=== PATIENT | female | born 1995 | race Caucasian/White ===

== ENCOUNTER 2022-04-08 13:10 | Emergency (ER) | payer OTHER, SELFPAY ==
[2022-04-08 13:16] VITALS: BP 128/96; PULSE 103; RESP 20; TEMP 36.7; O2SAT 100
[2022-04-08 13:43] LABS: Basophils Absolute Auto 0.1 K/mm3 (0.0-0.1); Basophils Percent Auto 0.3 % (0.2-1.2); Eosinophils Percent Auto 0.1 % (0-4.4); Hematocrit 44.3 % (37.0-47.0); Hemoglobin 15.1 g/dL (12.0-15.0); Immature Granulocyte Absolute 0.09 K/mm3 (0.00-0.031); Immature Granulocyte Percent A 0.5 % (0-0.5); Lymphocytes Absolute Auto 1.33 K/mm3 (0.9-3.2); Lymphocytes Percent Auto 7.7 % (18.3-44.2); Mean Corpuscular HGB Conc 34.1 g/dl (32-36); Mean Corpuscular Hemoglobin 30.8 pg (26-34); Mean Corpuscular Volume 90.2 fl (80-100); Mean Platelet Volume 9.3 fl (7.4-10.4); Monocytes Absolute Auto 0.5 K/mm3 (0.1-0.6); Monocytes Percent Auto 2.7 % (2.6-8.5); Neutrophils Absolute Auto 15.4 K/mm3 (1.3-6.7); Neutrophils Percent Auto 88.7 % (45.5-73.1); Platelet Count Result 367 k/mm3 (150-375); Red Blood Count 4.91 M/mm3 (4.2-5.4); White Blood Count 17.3 K/mm3 (4.5-10.0)
--- NOTE | 2022-04-08 13:49 | ED.GENADULT ---
HPI - General Adult General Chief complaint: Psychiatric Symptoms Stated complaint: mental breakdown, SI Time Seen by Provider: 04/08/22 13:28 History of Present Illness HPI narrative: 26-year-old female history of anxiety depression presenting the emergency department for evaluation of worsening anxiety. Patient states that she does not have a primary care physician but has been prescribed her medications through an online physician. Patient had been taking sertraline and did stop taking her meds for a few weeks. Patient did start taking them again yesterday. Patient states she has had increased life stresses and increased anxiety. Patient feels she is having a mental break. Patient does report suicidal ideation patient does have a loose plan of cutting herself with a knife or taking additional pills. Patient states at this point she has no intent on acting on the plan but feels sometimes she has no other options. Patient does not have a psychiatrist or therapist. Patient denies any prior history of suicide attempts or psychiatric inpatient admission. Patient is present with her mother and her . Related Data Allergies Allergy/AdvReac Type Severity Reaction Status Date / Time No Known Allergies Allergy Unverified 04/08/22 16:45 Review of Systems Review of Systems: CONSTITUTIONAL: Denies fever, chills, or sweats. EYES: Denies visual changes, redness, or discharge. ENT: Denies rhinorrhea, congestion, sore throat, or otalgia. CARDIOVASCULAR: Denies chest pain, palpitations, or edema. RESPIRATORY: Denies cough or dyspnea. GASTROINTESTINAL: Denies abdominal pain, nausea, vomiting, or diarrhea. GENITOURINARY: Denies dysuria or hematuria. SKIN: Denies rash or itching. MUSCULOSKELETAL: Denies back pain, joint pain, or myalgia. NEUROLOGIC: Denies headache, numbness, or weakness. PSYCHIATRIC: Anxiety and depression PMFSH Social History Social History Substance use type: unknown Exam Narrative: APPEARANCE: Well appearing, no pain, no distress, well-nourished. HEAD: normocephalic, atraumatic. EYES: PERRLA/EOMI, conjunctivae clear. NOSE: Normal no drainage NECK: Supple. No adenopathy, no masses. RESPIRATORY: Airway patent, respirations nonlabored. Clear to auscultation bilaterally, no rales, rhonchi, wheezing. CARDIOVASCULAR: Regular rate and rhythm without murmurs rubs or gallops. ABDOMINAL: Soft, nontender, nondistended, normal bowel sounds MUSCULOSKELETAL: Moves all extremities. Strength/ROM intact, No edema, No calf tenderness. NEURO: Alert. Cranial nerves II through XII intact. SKIN: Warm, dry. Normal Color PSYCHIATRIC: Anxious and tearful Course Course Emergency Course: Patient was having some nausea. Patient was provided some Ativan for anxiety and Zofran for nausea control. Patient and family were updated on the plan for labs medical clearance and anticipated evaluation by the crisis counselor. Patient did admit to cocaine use last week. Patient states she has not used in approximately a year and a half. Patient was evaluated crisis counselor and was discharged to home. Outpatient services were arranged. Reevaluation(s) Reevaluation #1: Patient is medically cleared to be evaluated crisis counselor. Patient is medically cleared for inpatient psychiatric placement as needed. Vital Signs Vital signs: Vital Signs Temperature 98.0 F 04/08/22 13:16 Pulse Rate 103 H 04/08/22 13:16 Respiratory Rate 20 04/08/22 13:16 Blood Pressure 128/96 H 04/08/22 13:16 Pulse Oximetry 100 04/08/22 13:16 Oxygen Delivery Room Air 04/08/22 13:16 Temperature 98.0 F 04/08/22 13:16 Pulse Rate 103 H 04/08/22 13:16 Respiratory Rate 20 04/08/22 13:16 Blood Pressure 128/96 H 04/08/22 13:16 Pulse Oximetry 100 04/08/22 13:16 Oxygen Delivery Room Air 04/08/22 13:16 Medical Decision Making Vital Signs Vital Signs: Vital Signs Temperature 98.0 F 04/08/22 13:16 Pulse Rate 103 H 0
[2022-04-08 13:53] LABS: Appearance Urine Clear (Clear); Bacteria Urine Trace /hpf; Bilirubin Urine 1+ (Negative); Blood Urine Trace-lysed (Negative); Color Urine Yellow (Yellow); Glucose Urine UA Negative (Negative); Ketones Urine 4+ mg/dL (Negative); Leukocyte Esterase Ur Negative LEU/UL (Negative); Mucus Urine Rare /lpf; Nitrate Urine Negative (Negative); Protein Urine Trace mg/dL (Negative); Specific Grav Ur >= 1.030 (1.001-1.035); Squamous Epithelial Cell Urine Many /hpf (Few); Urobilinogen Urine 0.2 mg/dL (<2.0); pH Urine 5.5 (5.0-9.0)
[2022-04-08 13:53] LABS: Alanine Aminotransferase 13 U/L (6-35); Alkaline Phosphatase 79 U/L (38-126); Anion Gap 13 mmol/L (8-16); Aspartate Amino Transferase 25 U/L (14-36); Bilirubin,Total 0.6 mg/dL (0.2-1.3); Blood Urea Nitrogen 16 mg/dL (7-17); Calcium 8.9 mg/dL (8.4-10.2); Carbon Dioxide 18 mmol/L (22-30); Chloride 105 mmol/L (98-107); Estimated CRCL calculation 102 ml/min; Estimated Glomerular Filt Rate > 60; Glucose 78 mg/dL (65-110); Potassium 4.1 mmol/L (3.4-5.0); Sodium 136 mmol/L (137-145)
[2022-04-08 13:54] LABS: Ethanol < 10 mg/dL (<10)
[2022-04-08 13:56] LABS: Add Urine Microscopic? YES
[2022-04-08 14:00] LABS: Amphetamine Screen Urine Negative (Negative); Barbiturate Screen Urine Negative (Negative); Benzodiazepines Screen Urine Positive (Negative); Cannabinoid Screen Urine Positive (Negative); Cocaine Screen Urine Positive (Negative); Methadone Screen Urine Negative (Negative); Opiate Screen Urine Negative (Negative); Phencyclidine Screen Urine Negative (Negative)
[2022-04-08] MEDS: ONDANSETRON HCL ODT 4 MG TABLET PO (14:30)
[2022-04-08] MEDS: LORazepam (*CRX) 1 MG TABLET PO ×2 (14:30→16:46)
[2022-04-08 15:05] LABS: Acetaminophen < 10 ug/mL (10-30); Salicylate < 1.0 mg/dL (2-20)
[2022-04-08 19:45] LABS: Pregnancy On Board Control Positive; Urine Pregnancy Test Negative
== END 2022-04-08 20:30 | disposition home or self-care (01) ==
PROVIDERS: Emergency Medicine; Emergency Provider Emergency Medicine
DX: F41.9 Anxiety disorder, unspecified (principal)
CPT/HCPCS: 36415; 80053; 80307; 81001; 81025; 84443; 85025; 99284; A9270

== ENCOUNTER 2022-10-04 14:46 | Outpatient (CLI) | payer OTHER, SELFPAY ==
--- NOTE | ~2022-10-04 | XR_ITS ---
XR lumbar spine 2-3V DATE: 10/04/2022 15:02 INDICATION: Low back pain TECHNIQUE: AP, lateral, coned lateral lumbosacral views COMPARISON: None FINDINGS: Very slight levoscoliosis of the lumbar spine. Normal alignment of the lumbar spine. No fra cture or bone destruction or spondylolisthesis. The included lower thoracic and lumbar pedicles are i ntact. Lumbar and lumbosacral interspaces are well preserved. The sacroiliac joints are intact. IMPRESSION: Very slight levoscoliosis Reviewed, dictated and finalized at location A. 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
== END 2022-10-04 14:47 ==
PROVIDERS: PCP Family Medicine; Visit Provider Family Medicine
DX: M54.50 Low back pain, unspecified (principal); G89.29 Other chronic pain
CPT/HCPCS: 72100

== ENCOUNTER 2022-10-26 14:08 | Outpatient (RCR) | payer OTHER, SELFPAY ==
--- NOTE | 2022-10-26 15:54 | PTOPEVAL1 ---
Assessment and note entered by Jennifer Irving DPT Evaluation Information Assessment Status Evaluation Subjective Information Pt reports low back pain. 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 Highest pain recently 8-9/10 and lowest 5/10. Pain is throughout her back but typically worse on the right. 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 Over the past year has started to have radiating pain down both legs, R>L, toward her ankle. Sometimes reports n/t. Minimal relief with ibuprofen, sometimes heat. Ice does not help and cold weather makes her pain worse. States she has to take a lot of breaks with cleaning her house and other activities. Will have pain with prolonged sitting and driving, worse after sleeping as well. X-rays 2 weeks ago but unsure results. No other imaging and no injections. No return visit scheduled with MD yet. Previously was able to do activities with less pain and no pain radiating into legs. Reported Pain Level Pain Score 4: Self Report Assessment PT Clinical Summary The patient is presenting to skilled therapy with a history of chronic LBP that has started radiating in the last year. She presents with decreased LE strength and flexibility, painful lumbar range of motion, and signs of neural tension which are contributing to her pain and difficulty with activities like standing and lifting at work. She will benefit from therapy to address these impairments and safely reduce pain and dysfunction. Plan of Care Interventions Electrical Stimulation,Hot Pack/Cold Pack,Manual Therapy,Neuro Re-education,Patient/Caregiver Education,Therapeutic Activities,Therapeutic Exercise,Self-Care/Home Management,Ultrasound PT Services Indicated Yes Treatment Frequency and 2 times a week for 4 weeks Duration These treatments will address the objective and functional deficits as defined above. The patient will be advanced safely and appropriately in order for the patient to progress towards his/her prior level of function. Additional exercises will be introduced and as well as a comprehensive home exercise program upon discharge, if needed, ?to ensure carryover of functional gains achieved in the clinic. This treatment plan has been reviewed and agreement upon by the patient.
--- NOTE | 2022-11-08 14:08 | PCPTNOTE ---
Patient's scheduled appointment was cancelled this date due to patient being at the plastic surgeons office, because she was bitten by a dog, and ended in the ED yesterday, and is seeing the plastic surgeon today.
--- NOTE | 2022-11-13 15:14 | PCPTNOTE ---
Patient did not show up for scheduled appointment this date. Called Pt, unable to leave voicemail due to the mailbox being full. Pt's last appointment was cancelled due to dog bite, unable to see if Pt needs to cancel appointments until she has the dog bite taken care of.
--- NOTE | 2022-11-15 15:23 | PCPTNOTE ---
Patient did not show up for scheduled appointment this date. Called, unable to leave a message, mailbox full.
--- NOTE | 2022-12-21 10:11 | PTOPDC ---
Assessment and note entered by Jennifer Irving DPT Evaluation Information Assessment Status Discharge - Pt Not Present Subjective Information Assessment PT Clinical Summary Patient has not attended therapy since her initial evaluation. She will be discharged this date. Plan of Care PT Services Indicated -
== END 2022-12-22 09:09 | disposition home or self-care (01) ==
LOC: ANHPT 14:08
PROVIDERS: PCP Family Medicine; Visit Provider Family Medicine
DX: M54.50 Low back pain, unspecified (principal); G89.29 Other chronic pain
CPT/HCPCS: 97112; 97162; 99199

== ENCOUNTER 2022-11-07 11:16 | Emergency (ER) | payer OTHER, SELFPAY ==
--- NOTE | ~2022-11-07 | XR_ITS ---
XR finger 3rd RT min 2V DATE: 11/07/2022 12:22 INDICATION: Dog bite of right middle digit. Pain. TECHNIQUE: 4 views COMPARISON: None FINDINGS: There is a small cortical fracture at the tip of the tuft of the distal phalanx of the thir d digit. No other fracture or dislocation or periosteal reaction or bone destruction is detected. There is soft tissue swelling at the proximal interphalangeal joint area dorsally. No radiopaque soft tissue foreign body or subcutaneous emphysema. IMPRESSION: Small cortical fracture at the tip of the tuft of the distal phalanx Reviewed, dictated and finalized at location L. IMPRESSION: Small cortical fracture at the tip of the tuft of the distal phalan x
[2022-11-07 11:24] VITALS: BP 107/85; PULSE 93; RESP 16; TEMP 37.2; O2SAT 99
--- NOTE | 2022-11-07 12:06 | ED.ANIMALBIT ---
HPI - Animal Bite General Chief Complaint: Animal Bite Stated Complaint: dog bite Time Seen by Provider: 11/07/22 11:53 Source: patient Mode of arrival: ambulatory Limitations: no limitations History of Present Illness HPI narrative: patient is a 27-year-old female that presents with right 2nd and 3rd digit pain after dog bite last night. Reports 3rd digit hurts to bend and has increased pain and nail bed due to nail being torn detention off. Cleaned with soap and water at home. Unsure of last tetanus shot. The dog is up-to-date on vaccinations. Denies any warmth, stiffness, redness to finger or hand Related Data Allergies Allergy/AdvReac Type Severity Reaction Status Date / Time No Known Allergies Allergy Unverified 11/07/22 11:49 Review of Systems Review of Systems: All systems reviewed & are unremarkable except as noted in HPI and below Constitutional: Constitutional: Denies body ache(s), Denies fever(s), Denies headache(s), Denies malaise and Denies weakness Eyes: Eyes: Denies loss of vision ENT: Denies otalgia, Denies headache(s), Denies nasal discharge, Denies sinus pain and Denies sore throat Cardiovascular: Cardiovascular: Denies chest pain, Denies irregular heart rhythm and Denies dyspnea Respiratory: Respiratory: Denies dyspnea Gastrointestinal: Gastrointestinal: Denies abdominal pain, Denies melena, Denies hematochezia, Denies diarrhea, Denies nausea and Denies vomiting Musculoskeletal: Musculoskeletal: Denies back pain, Denies myalgias and Reports arthralgias (right 3 digit DIP) Integumentary/Breasts: Skin/Breast: Denies pruritus and Denies rash Neurologic: Denies headache(s), Denies loss of vision and Denies weakness Psychiatric: Psychiatric: Reports no additional psychiatric complaints PMFSH Past Medical History Medical History (Updated 11/07/22 @ 12:48 by Lissette Barnett APRN) Anxiety Depression Family History Family History (Updated 10/03/22 @ 17:20 by Stephen Romero MD) Father Hypertension Mother Hypertension Social History Social History Smoking status: Current every day smoker Tobacco type: cigarettes Alcohol intake: current Substance use: current Substance use type: marijuana Occupation/Education: occupation Gender identity (if verbalized by the patient): Female Sexual Orientation (if Verbalized by the Patient): Straight or Heterosexual Spiritual care concerns: No Comments At time of signature, agree with nursing past medical, surgical, social and family history. There is no relevant family history pertinent to the presenting complaint. Exam Const: General: cooperative, healthy appearing, comfortable, no acute distress and well nourished Nutritional Appearance: well nourished Orientation/consciousness: patient oriented x3 Limitations: no limitations HENMT: Head: normal to inspection, normocephalic and atraumatic Ears: external ears normal Face/Nose/Sinus: Normal external nose present, normal facial exam and face symmetric Face and sinus: normal facial exam and face symmetric Mouth: Yes lip normal Eyes: General: appearance normal, both eyes and all related structures Alignment and Position: alignment normal and position normal Periorbital: periorbital findings normal Eyelids: eyelids normal Pupils: Equal, round and reactive pupils present EOM: EOMs intact bilaterally Neck: Neck: normal visual inspection and full ROM Chest: Chest palpation & inspection: normal inspection of the chest Resp: Effort & Inspection: normal respiratory effort and able to speak in complete sentences Auscultation: clear to auscultation bilaterally Cardio: Rate: regular rate Rhythm: regular rhythm Heart sounds: S1 normal heart sound present and S2 normal heart sound present GI: Inspection: normal to inspection Skin: General skin exam: normal color and no rashes or lesions noted Neuro: General: patient orient
[2022-11-07] MEDS: TETANUS,DIPHTHERIA,AC PERTUSSIS ADULT (0.5 ML) BOOSTRIX IM (12:28)
== END 2022-11-07 12:56 | disposition home or self-care (01) ==
PROVIDERS: Emergency Provider Nurse Practitioner Family
DX: S62.632A Displaced fracture of distal phalanx of right middle finger, initial encounter for closed fracture (principal); W54.0XXA Bitten by dog, initial encounter; Z23 Encounter for immunization; F17.210 Nicotine dependence, cigarettes, uncomplicated; F12.90 Cannabis use, unspecified, uncomplicated
CPT/HCPCS: 29130; 73140; 90471; 90715; 99214; G0463

== ENCOUNTER 2023-03-08 11:01 | Emergency (ER) | payer OTHER, SELFPAY ==
--- NOTE | 2023-03-08 11:10 | ED.URI ---
HPI - URI/Sore Throat General Chief Complaint: Ear Stated Complaint: SWOLLEN TONSILS Time Seen by Provider: 03/08/23 11:10 Source: patient Mode of arrival: ambulatory Limitations: no limitations History of Present Illness HPI Narrative: 27 yo F presents with c/o fatigue, bodyaches, headache, low grade fever, sore throat since yesterday morning. Afebrile today. Taking ibuprofen for pain. Denies N/v/d. 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 All systems reviewed and negative except as noted above. Related Data Allergies Allergy/AdvReac Type Severity Reaction Status Date / Time No Known Allergies Allergy Unverified 03/08/23 11:12 Review of Systems Review of Systems: CONSTITUTIONAL: Reports fatigue, fever. Denies chills, or sweats. EYES: Denies visual changes, redness, or discharge. ENT: Denies rhinorrhea, congestion. Reports sore throat. Denies otalgia. CARDIOVASCULAR: Denies chest pain, palpitations, or edema. RESPIRATORY: Denies cough or dyspnea. GASTROINTESTINAL: Denies abdominal pain, nausea, vomiting, or diarrhea. GENITOURINARY: Denies dysuria or hematuria. SKIN: Denies rash or itching. MUSCULOSKELETAL: Denies back pain, joint pain. Reports myalgia. NEUROLOGIC: Reports headache. Denies numbness, or weakness. PSYCHIATRIC: Denies anxiety or depression. All other systems reviewed are negative, except as documented in HPI. PMFSH Past Medical History Medical History (Updated 03/08/23 @ 11:33 by Cony Chung NP) Anxiety Depression Family History Family History (Updated 10/03/22 @ 17:20 by Stephen Romero MD) Father Hypertension Mother Hypertension Social History Social History Smoking status: Current every day smoker Tobacco type: cigarettes Alcohol intake: current Substance use: current Substance use type: marijuana Occupation/Education: occupation Gender identity (if verbalized by the patient): Female Sexual Orientation (if Verbalized by the Patient): Straight or Heterosexual Spiritual care concerns: No Comments At time of signature, agree with nursing past medical, surgical, social and family history. There is no relevant family history pertinent to the presenting complaint. Exam Narrative: GENERAL: This is a well-nourished, well-developed patient, in no apparent distress. HEAD: normocephalic, atraumatic. EYES: PERRL. Sclera clear/white. Vision is grossly intact. EARS: External ears normal, auditory canals clear and without drainage, TMs normal without perforation. Hearing grossly intact. NOSE: External nose normal with no obvious nasal discharge, nares without redness, no rhinorrhea. THROAT: Mucous membranes moist, posterior pharynx and tonsils erythematous with swelling, tonsils 1+ bilaterally with exudates. NECK: Neck supple, non-tender with anterior cervical lymphadenopathy. Denies masses or thyromegaly. CARDIOVASCULAR: Regular rate and rhythm without murmurs, gallops, or rubs. RESPIRATORY: Clear to auscultation. Breath sounds equal bilaterally. No wheezes, rales, or rhonchi. SKIN: warm, Dry, intact with no suspicious lesions or rash, good texture and turgor. NEURO: awake, alert, and oriented to person, place and time. There were no obvious focal neurologic abnormalities. EXTREMITIES: No joint tenderness, effusion, or edema noted. Course Course Level of Care: Express Care Visit Vital Signs Vital signs: Vital Signs Temperature 36.8 C 03/08/23 11:19 Pulse Rate 89 03/08/23 11:19 Respiratory Rate 16 03/08/23 11:19 Blood Pressure 111/80 03/08/23 11:19 Pulse Oximetry 99 03/08/23 11:19 Temperature 36.8 C 03/08/23 11:19 Pulse Rate 89 03/08/23 11:19 Respiratory Rate 16 03/08/23 11:19 Blood Pressure 111/80 03/08/23 11:19 Pulse Oximetry 99 03/08/23 11:19 Reviewed MDM - URI/Sore Throat MDM Narrative Medical decision making narrative: Patient is aware of diagnosis, understan
[2023-03-08 11:19] VITALS: BP 111/80; PULSE 89; RESP 16; TEMP 36.8; O2SAT 99
== END 2023-03-08 11:35 | disposition home or self-care (01) ==
PROVIDERS: Emergency Provider Nurse Practitioner Family; PCP Family Medicine
DX: J02.0 Streptococcal pharyngitis (principal); F17.210 Nicotine dependence, cigarettes, uncomplicated; F12.90 Cannabis use, unspecified, uncomplicated
CPT/HCPCS: 87081; 87880; 99203; G0463